=== PATIENT | male | born 1990 | race Caucasian/White ===

== ENCOUNTER 2016-07-22 19:00 | Emergency (ER) | payer OTHER ==
[2016-07-22 19:09] VITALS: BP 121/72; PULSE 96; TEMP 98; BMI 38.5
--- NOTE | 2016-07-22 19:10 | PDOC ---
History of Present Illness - General History Source: Patient Exam Limitations: No Limitations - History of Present Illness Initial Comments: 07/22/16 19:58 The patient is a 25 year old male with no significant past medical history, who presents to the ED after twisting his right knee while playing soccer. He states he has been ambulatory but limping ever since the incident. He denies taking any medications for pain relief. He denies any other trauma, or complaints. <Nile Pastor - Last Filed: 07/22/16 19:57> <Mc Ruvalcaba - Last Filed: 07/23/16 05:45> - General Chief Complaint: Injury Stated Complaint: RT KNEE PAIN Time Seen by Provider: 07/22/16 19:10 Past History <Nile Pastor - Last Filed: 07/22/16 19:57> - Past Medical History Anemia: No Asthma: No Cancer: No Cardiac Disorders: No CVA: No COPD: No CHF: No Dementia: No Diabetes: No GI Disorders: No Disorders: No HTN: No Hypercholesterolemia: No Liver Disease: No Seizures: No Thyroid Disease: No - Immunization History Immunization Up to Date: Yes - Psycho/Social/Smoking Cessation Hx Anxiety: No Suicidal Ideation: No Smoking History: Former smoker Have you smoked in the past 12 months: Yes Number of Cigarettes Smoked Daily: 0 If you are a former smoker, when did you quit?: 03/16 Information on smoking cessation initiated: Yes 'Breaking Loose' booklet given: 07/22/16 Hx Alcohol Use: Yes (2-3 DRINKS WEEKEND) Drug/Substance Use Hx: No Substance Use Type: Alcohol Hx Substance Use Treatment: No <Mc Ruvalcaba - Last Filed: 07/23/16 05:45> - Past Medical History Allergies/Adverse Reactions: Allergies Allergy/AdvReac Type Severity Reaction Status Date / Time No Known Allergies Allergy Verified 07/22/16 19:02 Home Medications: Ambulatory Orders NK [No Known Home Medication] 07/22/16 Review of Systems - Review of Systems Able to Perform ROS?: Yes Comments:: 07/22/16 19:58 GENERAL/CONSTITUTIONAL: No fever or chills. No weakness. HEAD, EYES, EARS, NOSE AND THROAT: No change in vision. No ear pain or discharge. No sore throat. CARDIOVASCULAR: No chest pain or shortness of breath. RESPIRATORY: No cough, wheezing, or hemoptysis. GASTROINTESTINAL: No nausea, vomiting, diarrhea or constipation. GENITOURINARY: No dysuria, frequency, or change in urination. MUSCULOSKELETAL: + right knee pain. No neck or back pain. SKIN: No rash NEUROLOGIC: No headache, vertigo, loss of consciousness, or change in strength/ sensation. ENDOCRINE: No increased thirst. No abnormal weight change. HEMATOLOGIC/LYMPHATIC: No anemia, easy bleeding, or history of blood clots. ALLERGIC/IMMUNOLOGIC: No hives or skin allergy. <Nile Pastor - Last Filed: 07/22/16 19:57> *Physical Exam - Vital Signs Last Vital Signs Temp Pulse Resp BP Pulse Ox 98 F 96 H 16 121/72 97 07/22/16 19:01 07/22/16 19:01 07/22/16 19:01 07/22/16 19:01 07/22/16 19:01 - Physical Exam Comments: 07/22/16 19:59 GENERAL: Awake, alert, and fully oriented, in no acute distress HEAD: No signs of trauma EYES: PERRLA, EOMI, sclera anicteric, conjunctiva clear ENT: Auricles normal inspection, hearing grossly normal, nares patent, oropharynx clear without exudates. Moist mucosa NECK: Normal ROM, supple, no lymphadenopathy, JVD, or masses LUNGS: Breath sounds equal, clear to auscultation bilaterally. No wheezes, and no crackles HEART: Regular rate and rhythm, normal S1 and S2, no murmurs, rubs or gallops ABDOMEN: Soft, nontender, normoactive bowel sounds. No guarding, no rebound. No masses EXTREMITIES: Small Effusion to right knee. no joint line tenderness. Normal lower extremity. Normal range of motion, no edema. No clubbing or cyanosis. No cords, erythema, or tenderness NEUROLOGICAL: Cranial nerves II through XII grossly intact. Normal speech, normal gait SKIN: Warm, Dry, normal turgor, no rashes or lesions noted. <Nile Pastor - Last Filed: 07/22/16 19:57> - Vital Signs Last Vital Signs Temp Pulse Resp BP Pulse Ox 98 F 96 H 16 121/72 97 07/22/16 19:01 07/22/16 19:01 07/22/16 19:01 07/22/16 19:01 07/22/16 19:01 <Mc Ruvalcaba - Last Filed: 07/23/16 05:45> ED Treatment Course - Medications Given in the ED: ED Medications Discontinued Medications Generic Name Dose Route Start Last Admin Trade Name Arcadio PRN Reason Stop Dose Admin Ibuprofen 800 mg 07/22/16 19:45 07/22/16 19:49 Motrin - PO 07/22/16 19:46 800 mg ONCE ONE Administration <Nile Pastor - Last Filed: 07/22/16 19:57> Medical Decision Making - Medical Decision Making 07/23/16 05:44 plain films -, as read by me palomares wrap sprained knee nsaids wgt bearing as tolerated 07/23/16 05:45 <Mc Ruvalcaba - Last Filed: 07/23/16 05:45> *DC/Admit/Observation/Transfer - Attestations Scribe Attestion: 07/22/16 20:00 Documentation prepared by Nile Pastor, acting as medical practice administrator for Mc Ruvalcaba MD. <Nile Pastor - Last Filed: 07/22/16 19:57> <Mc Ruvalcaba - Last Filed: 07/23/16 05:45> Diagnosis at time of Disposition: Knee sprain Qualifiers: Encounter type: initial encounter Involved ligament of knee: unspecified ligament Laterality: right Qualified Code(s): S83.91XA - Sprain of unspecified site of right knee, initial encounter - Discharge Dispostion Disposition: HOME Condition at time of disposition: Good - Referrals Referrals: Marcos Edward MD [Staff Physician] - - Patient Instructions Printed Discharge Instructions: DI for Knee Sprain
[2016-07-22] MEDS ORDERED: IBUPROFEN 400 MG TABLET (FP) PO ONE ×2 (19:45→19:46)
== END 2016-07-22 20:41 | disposition home or self-care (01) ==
LOC: FER 19:00
DX: S83.91XA Sprain of unspecified site of right knee, initial encounter (principal); X58.XXXA Exposure to other specified factors, initial encounter; Y93.66 Activity, soccer; Y92.322 Soccer field as the place of occurrence of the external cause
CPT/HCPCS: 73560-TC-RT; 99282-25

== ENCOUNTER 2016-08-30 06:02 | Day surgery (SDC) | payer OTHER ==
[2016-08-21 13:41] VITALS: BMI 38.5
[2016-08-30 06:44] VITALS: TEMP 98.2
[2016-08-30] MEDS ORDERED: ROPIVACAINE HCL 0.5% 30ML VIAL ONE (07:07)
[2016-08-30] MEDS ORDERED: DEXAMETHASONE SOD PHOSPHATE/PF 10 MG/ML SDV ONE (07:07)
[2016-08-30] MEDS ORDERED: MIDAZOLAM HCL 2 MG/2 ML SINGLE DOSE VIAL ONE (07:07)
[2016-08-30] MEDS ORDERED: PROPOFOL 20 ML ONE (07:38)
[2016-08-30] MEDS ORDERED: SUCCINYLCHOLINE CHLORIDE 200 MG/10 ML VIAL ONE (07:38)
[2016-08-30] MEDS ORDERED: ceFAZolin SODIUM 1 GM VIAL ONE (07:54)
[2016-08-30] MEDS ORDERED: ALBUTEROL SO4 6.7 GM HFA INHALER IH ONE (07:55)
[2016-08-30] MEDS ORDERED: ONDANSETRON 4 MG/2 ML VIAL ONE (07:56)
[2016-08-30] MEDS ORDERED: DEXAMETHASONE SOD PHOSPHATE 4 MG/1 ML VIAL ONE (07:56)
[2016-08-30] MEDS ORDERED: HYDROmorphone HCL/PF 1 MG/ML VIAL (FOR PYXIS CHARGING ONLY) ONE ×3 (09:01→11:28)
[2016-08-30] MEDS ORDERED: KETOROLAC TROMETHAMINE 30 MG/1 ML VIAL ONE ×2 (11:28→11:43)
[2016-08-30] MEDS ORDERED: ACETAMINOPHEN INJECTION 100 ML IVPB ONE (11:43)
[2016-08-30] MEDS ORDERED: LACTATED RINGERS SOLUTION 1,000 ML IV SCH (11:45)
[2016-08-30] MEDS ORDERED: KETOROLAC TROMETHAMINE 30 MG/1 ML VIAL IVPUSH ONE (11:45)
[2016-08-30] MEDS ORDERED: ACETAMINOPHEN 1000 MG/100 ML VIAL (NON FORMULARY) IVPB ONE (11:45)
[2016-08-30] MEDS ORDERED: PROMETHAZINE HCL 25 MG/1 ML VIAL IVPUSH PRN (11:45)
[2016-08-30] MEDS ORDERED: HYDROmorphone HCL CARPU-JECT 1 MG/1 ML DISP.SYRIN IVPUSH ONE ×2 (12:33→14:55)
[2016-08-30] MEDS ORDERED: HYDROmorphone HCL CARPU-JECT 1 MG/1 ML DISP.SYRIN ONE (12:35)
--- NOTE | 2016-08-30 13:05 | OP ---
DATE OF OPERATION: 08/30/2016 PREOPERATIVE DIAGNOSIS: Right knee anterior cruciate ligament rupture. POSTOPERATIVE DIAGNOSIS: Right knee anterior cruciate ligament rupture, plus medial and lateral meniscal tears. PROCEDURE: Right knee arthroscopy, autograft anterior cruciate reconstruction with patellar tendon autograft, medial and lateral meniscal repairs. SURGEON: Alexis Vasquez MD STORES DESPATCH HAND: Gavin Langford, physician's creative assistant, whose skillful assistance was necessary for the safe and timely performance of this procedure. Mr. Langford was able to provide limb positioning, retraction, assist in the graft harvest in preparation, drive the camera, and then assist in the insertion of the graft and fixation with orthopedic hardware. TOURNIQUET TIME: 2 hours. POSTOPERATIVE CONDITION: Stable. COMPLICATIONS: None. IMPLANTS: Fast-Fix 360 x3, Arthrex TightRope x2. BLOOD LOSS: 100 mL. INDICATIONS: This is a pleasant 25-year-old gentleman who had suffered an ACL rupture to his knee. Treatment options, including nonoperative versus operative management were discussed. Given that he wanted to be an active gentleman, who was having instability, he elected to proceed with operative care. Operative risks were reviewed in detail including bleeding, infection, neurovascular injury, need for further surgery, postoperative pain and stiffness, graft failure or re-rupture, arthrofibrosis, persistent instability. We discussed medical risks such as heart attack, stroke, DVT, PE, and . We reviewed the use of perioperative antibiotic prophylaxis as well as perioperative DVT prophylaxis. I addressed all of the patient's questions. We reviewed the rehabilitation process. He voiced understanding and elected to proceed. PROCEDURE: The patient was brought in to the operating room after administration of a regional block in the preoperative holding area. The right lower extremity was then prepped and draped in the usual sterile fashion. A preoperative dose of antibiotics was given, and the usual time-out procedure was performed. At this point, the knee was marked, and the lateral portal was established using an 11 blade. The arthroscope was passed into the knee. Examination of the patellofemoral joint demonstrated no significant lesions. Passing the arthroscope down the trochlea into the femoral notch demonstrated a complete rupture of the ACL. The PCL was visualized to be intact. The arthroscope was now passed out of the knee, and the decision was made to perform graft harvest at this time. The limb was now exsanguinated, and tourniquet was inflated to 300 mmHg. Incision was planned out over the patellar tendon. This was carried down through skin and subcutaneous tissue. Blunt spreading was used to expose the paratenon, which was then split in line with its fibers. With the patellar tendon now exposed, the central third was chosen. This was marked out. Using a 10-mm catamaran blade, the graft was now incised. An oscillating saw was used to create 25 x 10-mm blunt bone plugs on both sides. Osteotomes were then used to remove the bone plugs. A knife was used to detach the graft from any remaining soft tissue attachments. The graft was now prepared on the back table. Both sides were sized to a 10.5 size socket. Any additional soft tissue was debrided. The knee was concurrently finished being examined with the arthroscope. The arthroscope was passed back into the knee. The lateral compartment was examined. There was some superficial cartilage fraying present. The meniscus initially appeared normal. However, upon probing of the posterior horn, there was a peripheral tear, which was mainly on the undersurface and extended slightly to the superior surface. Probing this demonstrated it was unstable. A shaver was passed into the knee and this was debrided. The arthroscope was now passed to the medial side. Here, fissuring was noted over the lateral aspect of the medial femoral condyle and the cartilage. No xiomara full-thickness lesions were seen. Again, here, the meniscus was examined and initially appeared unremarkable. However, probing of the undersurface demonstrated again a peripheral tear, which was near complete thickness on the posterior horn. Given the locations and instability of both of these tears, it was decided to perform meniscus repair. The medial side was debrided using the shaver. Utilizing a Fast-Fix 360 device, this was passed into the posterior horn at the site of the tear. A horizontal mattress type configuration was chosen. After the 2nd pass, the device was retrieved out of the knee. The suture was tightened, and then the cutter was passed, and the suture was cut. The medial meniscus was now probed and found to be stable. The arthroscope was now passed back into the lateral compartment. Here, the tear was repaired with 2 Fast-Fix 360 devices, the more lateral device being passed in a horizontal mattress, and the more medial being passed in a vertical mattress configuration. Both sutures were tensioned and then cut. Attention was now turned to the notch. Here, the remnant of the ACL was debrided off both the femoral and tibial sides. The femoral drill guide was now inserted, and at the anatomic origin of the ACL on the femur, the spike was inserted into the bone. A small incision was now made distally and laterally in the femur, and the trocar was inserted down to the level of the lateral femoral cortex after blunt spreading. The FlipCutter was now drilled into the knee. FlipCutter positioning was verified and was satisfactory. This was then toggled, and a 35-mm x 10.5-mm socket was created. The FlipCutter was removed, and a passing suture was placed. This was now repeated on the tibial side. The tibial guide was now placed into the knee. Again, the trocar was passed down to the level of the bone through a tiny incision. The FlipCutter was then drilled into the knee. Position was verified, and then the FlipCutter was toggled, and a socket was created. Again, a passing suture was placed here. The passing sutures were now retrieved out through the lateral portal. The medial portal was enlarged utilizing a knife as well as the shaver. The sutures were now both retrieved out of the medial portal concurrently, and the arthroscope was passed through the lateral portal. The graft was now passed into the knee, toggling the button to sit firmly on the femoral cortex. The graft was then cinched into the femoral side. After drawing the bone block into the femoral side, the tibial sutures were toggled, pulling the graft into the knee. During this time, the graft did get entangled in some of the soft tissue. After 2 hours 10 minutes, the tourniquet was deflated, and the procedure was continued. The incision was expanded on the medial side, and dissection was carried down to the graft, and then the graft was freed of the surrounding tissue and then passed into the knee. It was then sucked down into the socket utilizing the sutures. The button was now loaded onto the sutures, and the TightRope was toggled in order to provide tension, maintaining the knee in full extension during this process. The excess sutures were now tied and then cut. A Pankaj maneuver was performed, demonstrating the knee was now stable. The deep tissues were approximated using 0 Vicryl. The subcutaneous tissue was approximated using 2-0 Vicryl. The skin was closed using 2-0 nylon. Sterile dressings were placed. The patient was placed into a knee brace in full extension. He was transferred to the recovery room after extubation, in stable condition. Tricia NESBITT/[id number]
[2016-08-30] MEDS ORDERED: traMADol HCL 50 MG TABLET ONE (13:54)
[2016-08-30 14:40] VITALS: BP 133/78; PULSE 88
== END 2016-08-30 14:45 | disposition home or self-care (01) ==
LOC: FASU 06:02
PROVIDERS: ATTEND Orthopaedic Surgery Sports Medicine
PROC: 0SQC4ZZ Repair Right Knee Joint, Percutaneous Endoscopic Approach (ICD-10-PCS; 2016-08-30)
PROC: 0MUN47Z Supplement Right Knee Bursa and Ligament with Autologous Tissue Substitute, Percutaneous Endoscopic Approach (ICD-10-PCS; principal; 2016-08-30 08:09)
DX: S83.511A Sprain of anterior cruciate ligament of right knee, initial encounter (principal); S83.241A Other tear of medial meniscus, current injury, right knee, initial encounter; S83.281A Other tear of lateral meniscus, current injury, right knee, initial encounter; X58.XXXA Exposure to other specified factors, initial encounter; Y93.9 Activity, unspecified; Y92.9 Unspecified place or not applicable
CPT/HCPCS: 94760

== ENCOUNTER 2017-04-25 10:26 | Day surgery (SDC) | payer OTHER ==
[2017-04-22 15:44] VITALS: BMI 41.1
[2017-04-25] MEDS ORDERED: BUPIVACAINE HCL 0.25% 125 MG/50 ML VIAL ONE (13:10)
[2017-04-25] MEDS ORDERED: fentaNYL CITRATE 250 MCG/5 ML VIAL ONE (13:45)
[2017-04-25] MEDS ORDERED: MIDAZOLAM HCL 2 MG/2 ML SINGLE DOSE VIAL ONE (13:45)
[2017-04-25] MEDS ORDERED: ACETAMINOPHEN INJECTION 100 ML IVPB ONE (13:50)
[2017-04-25] MEDS ORDERED: LIDOCAINE HCL/PF 2% SDV 5ML VIAL ONE ×2 (13:57)
[2017-04-25] MEDS ORDERED: ePHEDrine SULFATE 50 MG/1 ML AMPULE ONE (13:57)
[2017-04-25] MEDS ORDERED: PROPOFOL 20 ML ONE ×2 (13:57→14:05)
[2017-04-25] MEDS ORDERED: KETOROLAC TROMETHAMINE 30 MG/1 ML VIAL ONE (14:35)
[2017-04-25] MEDS ORDERED: ONDANSETRON 4 MG/2 ML VIAL ONE (14:35)
[2017-04-25] MEDS ORDERED: PROMETHAZINE HCL 25 MG/1 ML VIAL IVPB PRN (15:31)
[2017-04-25] MEDS ORDERED: ONDANSETRON 4 MG/2 ML VIAL IVPUSH PRN (15:31)
[2017-04-25] MEDS ORDERED: ONDANSETRON 4 MG/2 ML VIAL IVPUSH ONE (15:40)
[2017-04-25] MEDS ORDERED: LACTATED RINGERS SOLUTION 1,000 ML IV SCH (15:45)
--- NOTE | 2017-04-25 15:50 | OP ---
Operative Note - Note: Operative Date: 04/25/17 Pre-Operative Diagnosis: right knee medial and lateral meniscal tears Operation: right knee arthroscopy with lateral meniscal repair and partial medial meniscectomy Implants: jann AIR Post-Operative Diagnosis: Same as Pre-op Surgeon: Alexis Vasquez Anesthesiologist/CHICKEN FANCIER: George Vazquez Anesthesia: General Estimated Blood Loss (mls): 10 Operative Report Dictated: Yes
[2017-04-25 16:47] VITALS: TEMP 97.7
--- NOTE | 2017-04-25 17:04 | OP ---
DATE OF OPERATION: 04/25/2017 PREOPERATIVE DIAGNOSIS: Right knee medial, lateral meniscal tear. POSTOPERATIVE DIAGNOSIS: Right knee medial, lateral meniscal tear. PROCEDURE: Right knee arthroscopy with partial medial meniscectomy, lateral meniscal repair. SURGEON: Alexis Vasquez M.D. ANESTHESIA: General. POSTOPERATIVE CONDITION: Stable. COMPLICATIONS: None. IMPLANTS: Trever all incised meniscal repair device x1. INDICATION: This is a pleasant gentleman who previously underwent right knee arthroscopic ACL reconstruction. He had been developing increasing pain about the knee. MRI demonstrates medial and lateral meniscal tears. Prior to surgery, the risks, benefits, and alternatives were discussed in detail. Alternatives would be nonoperative care with physical therapy, oral medications, injections. We discussed the operative risks in detail including bleeding, infection, neurovascular injury, need for further surgery, postoperative pain and stiffness, meniscal retear, development of osteoarthritis. Discussed medical risks such as heart attack, stroke, DVT, PE, and . Addressed all the patient's questions. He voiced understanding and elected to proceed. PROCEDURE: The patient was brought to the operating room where general anesthesia was administered. The right lower extremity was prepped and draped in the usual sterile fashion. A preoperative dose of antibiotics are given, and the usual timeout procedure was performed. A preoperative examination of the right knee demonstrated full range of motion. There was mild effusion. ACL was stable as was the PCL, and collaterals were stable as well. At this point, the lateral arterial portal was marked out as well as the medial one. They were subcutaneously injected with 0.25% Marcaine. A lateral port was now established using examination of patellofemoral joint demonstrated no significant lesions. Passing the arthroscope down to the notch demonstrated an intact ACL graft albeit with some mild fraying. Medial portal was now established under spinal needle localization. The medial compartment was now examined. There was some transverse fissuring over the medial femoral condyle and over the medial tibial plateau. At first, the meniscus appeared okay, however as the knee was distracted, it became more apparent that there was a tear in the white-white zone of the posterior horn of the medial meniscus. The area was probed and found to be unstable. Given its location, debridement was felt to be the best option. Utilizing a combination of meniscal biters and the shaver, it was debrided down to a stable base. The arthroscope was now passed into the lateral compartment. Here, the femoral and tibial cartilage substances also showed some mild wear. The meniscus was examined and at the site of the previous repair in the posterior horn, there was a portion that did not heal. This portion had the probe passed into it, and it was found to be unstable. This tear is more in the red-white zone and was felt to have some healing potential. The area itself was prepped utilizing the shaver as well as the meniscal rasp. Utilizing the [employer] meniscus repair device, it was passed in a horizontal mattress fashion which was then toggled down, securing the tear in place. The tear was now probed and found to be stable. The attention was now turned to the notch. Here, on the anterior aspect of the lateral notch, the shaver was used to debride to the cortical surface. A microfracture awl was now used to create 3 trepanations in order to allow for a narrow excursion into the joint. At this time, the excess fluid was withdrawn from the joint. The port was sutured using 3-0 nylon. Sterile dressings were placed. Patient was extubated and transferred to recovery room in stable condition. Tricia [id number]
[2017-04-25 17:34] VITALS: BP 119/63; PULSE 64
== END 2017-04-25 17:35 | disposition home or self-care (01) ==
LOC: FASU 10:26
PROVIDERS: ATTEND Orthopaedic Surgery Sports Medicine
PROC: 0SBC4ZZ Excision of Right Knee Joint, Percutaneous Endoscopic Approach (ICD-10-PCS; 2017-04-25)
PROC: 0SQC4ZZ Repair Right Knee Joint, Percutaneous Endoscopic Approach (ICD-10-PCS; principal; 2017-04-25 14:27)
DX: S83.241A Other tear of medial meniscus, current injury, right knee, initial encounter (principal); X58.XXXA Exposure to other specified factors, initial encounter; Y93.9 Activity, unspecified; Y92.9 Unspecified place or not applicable
CPT/HCPCS: 94760